=== PATIENT | female | born 1995 | race Caucasian/White ===

== ENCOUNTER 2021-08-10 05:45 | Inpatient (IN) | payer OTHER ==
[2021-08-10 07:39] LABS: HCT 33.5 % (37.0-47.0); HGB 11.5 g/dl (12.5-16.0); MCHC 34.3 g/dL (32.0-36.0); MCV 90.3 fL (78.0-100.0); MPV 10.1 fL (6.0-9.5); RBC 3.71 M/uL (4.20-5.40); RDW 12.4 % (11.5-14.0); WBC 17.3 K/uL (4.0-10.5)
[2021-08-10 10:28] LABS: BILIRUBIN NEGATIVE (NEGATIVE); BLOOD TRACE-INTACT Ery/uL (NEGATIVE); CLARITY CLEAR (CLEAR); COLOR YELLOW (YELLOW); GLUCOSE (U) NORMAL (NORMAL); LEUKOCYTES NEGATIVE Leu/uL (NEGATIVE); NITRITE NEGATIVE (NEGATIVE); PROTEIN NEGATIVE (NEGATIVE); SPECIFIC GRAVITY 1.025 (1.001-1.030); UROBILINOGEN 0.2 mg/dL (0.2-1.0); pH 6.5 (5.0-9.0)
[2021-08-10 10:37] LABS: BACTERIA TRACE; URINARY WBC RARE
[2021-08-11 06:07] LABS: HCT 30.3 % (37.0-47.0); MCH 30.3 pg (25.0-31.0); MCV 91.8 fL (78.0-100.0); MPV 10.4 fL (6.0-9.5); RBC 3.3 M/uL (4.20-5.40); RDW 12.7 % (11.5-14.0); WBC 12.8 K/uL (4.0-10.5)
[2021-08-12] MEDS ORDERED: IBUPROFEN800 MG PO (09:09)
[2021-08-12] MEDS ORDERED: COLACE100 MG PO (09:10)
[2021-08-12] MEDS ORDERED: PRENATAL FORMU1 EACH PO (09:10)
== END 2021-08-12 15:25 | disposition home or self-care (01) | DRG 785 ==
LOC: FOB 05:45
PROVIDERS: Obstetrics & Gynecology; ADMIT Obstetrics & Gynecology
PROC: 10D00Z1 Extraction of Products of Conception, Low, Open Approach (ICD-10-PCS; principal; 2021-08-10 08:00)
PROC: 0UT70ZZ Resection of Bilateral Fallopian Tubes, Open Approach (ICD-10-PCS; 2021-08-10 08:00)
DX: O34.211 Maternal care for low transverse scar from previous cesarean delivery (principal); O99.214 Obesity complicating childbirth; Z37.0 Single live birth; Z3A.36 36 weeks gestation of pregnancy; Z30.2 Encounter for sterilization; O99.62 Diseases of the digestive system complicating childbirth; K43.9 Ventral hernia without obstruction or gangrene; K66.0 Peritoneal adhesions (postprocedural) (postinfection); O90.89 Other complications of the puerperium, not elsewhere classified; R51.9 Headache, unspecified; O99.334 Smoking (tobacco) complicating childbirth; F17.290 Nicotine dependence, other tobacco product, uncomplicated; Z80.3 Family history of malignant neoplasm of breast; T23.201D Burn of second degree of right hand, unspecified site, subsequent encounter; X19.XXXD Contact with other heat and hot substances, subsequent encounter
CPT/HCPCS: 36415; 81001; 86850; 86900; 86901; J0456; J0690; J1885; J2274; J2405; J7050; J7120